=== PATIENT | male | born 1990 | race Caucasian/White ===

== ENCOUNTER 2018-08-21 00:41 | Emergency (ER) | payer SELFPAY ==
[~2018-08-21] VITALS: Ht 152.4 cm; Wt 88.1 kg
[2018-08-21 00:54] VITALS: BP 130/75; Ht 152.4 cm; Wt 88.1 kg
[2018-08-21] MEDS ORDERED: ACETAMINOPHEN 500 MG TAB PO STA (01:32)
--- NOTE | 2018-08-21 01:38 | ERD ---
ER Documentation Chief Complaint Chief Complaint STATES STOMACH AND CHEST FEELS HOT, ALSO C/O GENERALIZED WEAKNESS HPI 27-year-old male who presents emergency department with complaints of throat pain, fever, stated that he feels hot. Denies headache, head injury, loss of consciousness, dizziness, neck pain, neck stiffness, throat pain, difficulty swallowing, difficulty breathing lying flat, shoulder pain, chest pain, back pain, abdominal pain, nausea, vomiting, constipation, diarrhea, urinary symptoms, loss of bowel and bladder control, trauma, injury, falls, difficulty walking due to pain, numbness or tingling sensation, calf pain, recent travel, recent major surgery in the last 3 weeks, c assisted pain, recent long travel, recent exposure to any illness, recent antibiotic use in the last 3 months,chills, seizures. Past medical history: Denies.. Surgical history: Denies. Social: Denies smoking, use of alcoholic beverages, use of illegal drugs. ROS All systems reviewed and are negative except as per history of present illness. Medications Home Meds Active Scripts Carbamide Peroxide* (Debrox*) 6.5% - 15 Ml Drops, 10 DROP BOTH EARS BID for 4 Days, BOTTLE Prov:PEPEILABAN,LEEAR F 08/21/18 Acetaminophen* (Tylophen*) 500 Mg Capsule, 1 CAP PO Q6H PRN for PAIN AND OR ELEVATED TEMP, #20 CAP Prov:PASILABAN,LEEAR F 08/21/18 Ibuprofen* (Motrin*) 800 Mg Tab, 800 MG PO Q6H PRN for PAIN AND OR ELEVATED TEMP, #30 TAB Prov:PASILABAN,LEEAR F 08/21/18 Allergies Allergies: Coded Allergies: No Known Allergy (Unverified , 08/21/18) Physical Exam Vitals Vital Signs Date Temp Pulse Resp B/P (MAP) Pulse Ox O2 O2 Flow FiO2 Time Delivery Rate 08/21/18 99.3 02:51 08/21/18 102.3 01:43 08/21/18 102.3 01:43 08/21/18 102.3 108 21 130/75 96 00:54 (93) Physical Exam Const: No acute distress Head: Atraumatic Eyes: Normal Conjunctiva ENT: Normal External Ears, Nose and Mouth. Bilateral ears: 100% earwax. No mastoid tenderness. Throat: Uvula is midline and nondisplaced. Tonsils are +2 bilaterally with redness but no exudates. Tolerating secretions. Patent airway. Neck: Full range of motion. No meningismus. No neck stiffness. No nuchal rigidity. No signs of meningeal irritation. Resp: Clear to auscultation bilaterally Cardio: Regular rate and rhythm, no murmurs Abd: Soft, non tender, non distended. Normal bowel sounds. Negative Bell sign. Negative Katey sign (or test). Negative psoas sign. Negative Rovsing sign. Able to jump 10 times without developing abdominal pain. Skin: No petechiae or rashes Back: No midline or flank tenderness. No CVA tenderness. Ext: No cyanosis, or edema Neur: Awake and alert. No neurological deficits.. Psych: Normal Mood and Affect Results 24 hrs Current Medications Medications Dose Sig/Ashley Start Time Status Last (Trade) Ordered Route PRN Stop Time Admin Dose Reason Admin Ibuprofen 800 mg ONCE ONCE 08/21/18 DC 08/21/18 (Motrin) PO 02:00 01:43 08/21/18 02:01 1,000 mg ONCE STAT 08/21/18 DC 08/21/18 Acetaminophen PO 01:32 01:43 (Tylenol 08/21/18 01:35 Tab) Procedures/MDM Diagnostic tests: Influenza a and B: Negative for influenza A. Negative for influenza B. Rapid strep screen: Negative. Treatment: Motrin. Tylenol. Re-evaluation: Temperature responded to antipyretic medication. Latest temperature is 99.3. Negative Bell sign. Negative Katey sign (heel jar test). Negative psoas sign. Negative Rovsing sign. Able to jump 10 times without developing abdominal pain. No CVA tenderness. Ambulatory with steady gait. No neurological deficits. Stated that he feels much better at this time and that he is ready to go home. Differential diagnosis I have low suspicion for sepsis, severe or serious bacterial infection, meningitis, mastoiditis, peritonsillar abscess, pneumonia, pancreatitis, cholecystitis, diverticulitis, appendicitis, septic stone, pyelonephritis, nephrolithiasis. Final diagnosis: Viral syndrome. Cerumen impaction. Prescription: Motrin. Tylenol. Follow-up with PCP in the next 24-48 hours. Come back here in the emergency department for any new symptoms or any worsening symptoms. All questions and concerns were answered. Patient and family members verbalized understanding and agreed with plan of care. Hemodynamically stable on discharge. Departure Diagnosis: Primary Impression: Multiple complaints Additional Impressions: Viral syndrome Cerumen impaction Condition: Stable Additional Instructions: Follow-up with PCP in the next 24-48 hours. Come back here in the emergency department for any new symptoms or any worsening symptoms. JOYCELYN FRAZIER Aug 21, 2018 01:38
[2018-08-21] MEDS ORDERED: IBUPROFEN 800 MG TAB PO ONE (02:00)
[2018-08-21] MEDS ORDERED: ACET500C5 PO (02:54)
[2018-08-21] MEDS ORDERED: IBUP800T48 PO (02:54)
[2018-08-21] MEDS ORDERED: CARB15DR50 BOTH EARS (02:55)
[2018-08-21 03:20] VITALS: PULSE 94; RESP 20
== END 2018-08-21 03:21 | disposition home or self-care (01) ==
LOC: FTE 00:41
DX: R07.0 Pain in throat (principal); B34.9 Viral infection, unspecified; H61.23 Impacted cerumen, bilateral
CPT/HCPCS: 87400; 87880; 99283